=== PATIENT | female | born 1935 | race Caucasian/White ===

== ENCOUNTER 2019-08-24 03:16 | Emergency (ER) | payer OTHER ==
[2019-08-24] MEDS ORDERED: TRAMADOL HCL 50 MG TAB ONE (04:36)
--- NOTE | 2019-08-24 05:24 | EDPHYS ---
Physician Documentation [facility] Name: Dayanna Borrero Age: 84 yrs Sex: Female : 1935 Arrival Date: 08/24/2019 Time: 03:19 Bed 6 Private MD: ED Physician Everett Seymour HPI: 08/24 04:00 This 84 yrs old Female presents to ER via EMS with complaints of Fall Injury. tw4 04:00 Details of fall: The patient fell from an upright position, while standing. Onset: The tw4 symptoms/episode began/occurred today. Associated injuries: The patient sustained left hip. Severity of symptoms: At their worst the symptoms were mild, in the emergency department the symptoms are unchanged. The patient has not experienced similar symptoms in the past. Historical: - Allergies: 03:29 fluoxetine (bulk); bb 03:29 Iodine; bb 03:29 morphine; bb 03:29 quinidine; bb - Home Meds: 03:29 systane gel [Active]; duloxetine 60 mg oral cpDR 2 caps once daily [Active]; Norvasc bb 2.5 mg Oral tab 1 tab once daily [Active]; Plavix 75 mg Oral tab 1 tab once daily [Active]; aspirin 81 mg Oral chew 1 tab once daily [Active]; docusate sodium 100 mg Oral cap 1 cap 2 times per day [Active]; simvastatin 20 mg Oral tab 1 tab once daily [Active]; systane solution [Active]; Creon oral oral [Active]; Acetaminophen Oral [Active]; Tramadol Oral [Active]; Melatonin Oral [Active]; Seroquel 300 mg Oral tab 1 tab once daily [Active]; - Immunization history: Last tetanus immunization: unknown. - Social history:: Smoking status: Patient/guardian denies using tobacco. - Ebola Screening: : No symptoms or risks identified at this time. ROS: 04:00 Constitutional: Negative for fever, chills, and weight loss, Eyes: Negative for injury, tw4 pain, redness, and discharge, Cardiovascular: Negative for chest pain, palpitations, and edema, Respiratory: Negative for shortness of breath, cough, wheezing, and pleuritic chest pain, Abdomen/GI: Negative for abdominal pain, nausea, vomiting, diarrhea, and constipation, Skin: Negative for injury, rash, and discoloration, Neuro: Negative for headache, weakness, numbness, tingling, and seizure. 04:00 MS/extremity: Positive for injury or acute deformity, decreased range of motion, pain, paresthesias, puncture, Negative for abrasion, bite, contusion, puncture, rash, swelling. Exam: 04:00 Constitutional: This is a well developed, well nourished patient who is awake, alert, tw4 and in no acute distress. Head/Face: Normocephalic, atraumatic. Chest/axilla: Normal chest wall appearance and motion. Nontender with no deformity. No lesions are appreciated. Cardiovascular: Regular rate and rhythm with a normal S1 and S2. No gallops, murmurs, or rubs. Normal PMI, no JVD. No pulse deficits. Respiratory: Lungs have equal breath sounds bilaterally, clear to auscultation and percussion. No rales, rhonchi or wheezes noted. No increased work of breathing, no retractions or nasal flaring. Abdomen/GI: Soft, non-tender, with normal bowel sounds. No distension or tympany. No guarding or rebound. No evidence of tenderness throughout. Neuro: Awake and alert, GCS 15, oriented to person, place, time, and situation. Cranial nerves II-XII grossly intact. Motor strength 5/5 in all extremities. Sensory grossly intact. Cerebellar exam normal. Normal gait. 04:00 Musculoskeletal/extremity: Extremities: noted in the left hip: decreased ROM, deformity, pain. Vital Signs: 03:20 BP 147 / 110; Pulse 64; Resp 18; Temp 97.8(O); Pulse Ox 94% on R/A; Weight 58.97 kg ak1 (R); Height 5 ft. 0 in. (152.40 cm) (R); Pain 3/10; 03:54 BP 160 / 90; Pulse 57; Resp 18; Pulse Ox 95% on R/A; ak1 04:42 BP 157 / 101; Pulse 63; Resp 18; Pulse Ox 97% on R/A; ak1 05:15 BP 165 / 86; Pulse 62; Resp 16; Pulse Ox 95% on R/A; ak1 03:20 Body Mass Index 25.39 (58.97 kg, 152.40 cm) ak1 [place] Coma Score: 03:20 Eye Response: spontaneous(4). Verbal Response: oriented(5). Motor Response: obeys ak1 commands(6). Total: 15. Trauma Score (Adult): 03:20 Eye Response: spontaneous(1); Verbal Response: oriented(1); Motor Response: obeys ak1 commands(2); Systolic BP: > 89 mm Hg(4); Respiratory Rate: 10 to 29 per min(4); Markus Score: 15; Trauma Score: 12 MDM: 03:20 Patient medically screened. tw4 08/25 02:08 Differential diagnosis: abrasion, closed head injury, contusion. Data reviewed: tw4 radiologic studies, CT scan. Data interpreted: Pulse oximetry: Interpretation: normal. Counseling: I had a detailed discussion with the patient and/or guardian regarding: the historical points, exam findings, and any diagnostic results supporting the discharge/admit diagnosis. Medication response: tramadol. Response to treatment: the patient's symptoms have markedly improved after treatment, and as a result, I will discharge patient. Special discussion: I discussed with the patient/guardian in detail that at this point there is no indication for admission to the hospital. It is understood, however, that if the symptoms persist or worsen the patient needs to return immediately for re-evaluation. 08/24 03:21 Order name: CT Head C Spine tw4 08/24 03:21 Order name: CT Pelvis wo Cont tw4 Administered Medications: 08/24 04:42 Drug: traMADol 50 mg Route: PO; ak1 05:16 Follow up: Response: No adverse reaction; RASS: Alert and Calm (0); RASS: Drowsy (-1) ak1 Disposition: 08/24/19 05:23 Discharged to Home. Impression: Contusion of left hip. - Condition is Stable. - Discharge Instructions: Contusion, Hip Pain. - Prescriptions for Tramadol 50 mg Oral Tablet - take 1 tablet by ORAL route every 8 hours as needed; 12 tablet. - Medication Reconciliation Form, Thank You Letter, Antibiotic Education, Prescription Opioid Use form. - Follow up: Private Physician; When: Upon discharge from the Emergency Department; Reason: Recheck today's complaints, Continuance of care. - Problem is new. - Symptoms have improved. Signatures: Dispatcher [employer] Merissa Boyle RN RN bb Bonny Wilson RN RN ak1 vEerett Seymour MD [place] tw4 Corrections: (The following items were deleted from the chart) 07:09 05:23 08/24/2019 05:23 Discharged to Home. Impression: Contusion of left hip. Condition ak1 is Stable. Forms are Medication Reconciliation Form, Thank You Letter, Antibiotic Education, Prescription Opioid Use. Follow up: Private Physician; When: Upon discharge from the Emergency Department; Reason: Recheck today's complaints, Continuance of care. Problem is new. Symptoms have improved. tw4
--- NOTE | 2019-08-24 05:24 | ER ---
Nurse's Notes [facility] Name: Dayanna Borrero Age: 84 yrs Sex: Female : 1935 Arrival Date: 08/24/2019 Time: 03:19 Bed 6 Private MD: Diagnosis: Contusion of left hip Presentation: 08/24 03:20 Presenting complaint: EMS states: pt was found on the floor 30 mins [employer] with her walker ak1 in front of her at [facility]. pt c/o left hip pain. pt with pulses present to left foot. pt denies hitting her head, pt on Plavix. Care prior to arrival: None. Mechanism of Injury: Fall from standing position. Trauma event details: Injury occurred in the [facility], Injury occurred: [facility] Injury occurred: August 24, 2019 Injury occurred at: 02:50. 03:20 Method Of Arrival: EMS: [facility] ak1 03:20 Acuity: LORAINE 4 ak1 03:27 Transition of care: patient was not received from another setting of care. Onset of ak1 symptoms was August 24, 2019. Risk Assessment: Do you want to hurt yourself or someone else? Patient reports no desire to harm self or others. Initial Sepsis Screen: Does the patient meet any 2 criteria? No. Patient's initial sepsis screen is negative. Does the patient have a suspected source of infection? No. Patient's initial sepsis screen is negative. Trauma Activation: Alert Physician: ED Physician; Name: Dr. Seymour; Notified At: 03:10; Arrived At: 03:10 Physician: General Surgeon; Name: ; Notified At: 03:10; Arrived At: Physician: Radiology; Name: Daniel; Notified At: 03:10; Arrived At: 03:10 Physician: Respiratory; Name: ; Notified At: 03:10; Arrived At: Physician: Lab; Name: ; Notified At: 03:10; Arrived At: Historical: - Allergies: 03:29 fluoxetine (bulk); bb 03:29 Iodine; bb 03:29 morphine; bb 03:29 quinidine; bb - Home Meds: 03:29 systane gel [Active]; duloxetine 60 mg oral cpDR 2 caps once daily [Active]; Norvasc bb 2.5 mg Oral tab 1 tab once daily [Active]; Plavix 75 mg Oral tab 1 tab once daily [Active]; aspirin 81 mg Oral chew 1 tab once daily [Active]; docusate sodium 100 mg Oral cap 1 cap 2 times per day [Active]; simvastatin 20 mg Oral tab 1 tab once daily [Active]; systane solution [Active]; Creon oral oral [Active]; Acetaminophen Oral [Active]; Tramadol Oral [Active]; Melatonin Oral [Active]; Seroquel 300 mg Oral tab 1 tab once daily [Active]; - Immunization history: Last tetanus immunization: unknown. - Social history:: Smoking status: Patient/guardian denies using tobacco. - Ebola Screening: : No symptoms or risks identified at this time. Screenin:20 Abuse screen: Denies threats or abuse. Denies injuries from another. Tuberculosis ak1 screening: No symptoms or risk factors identified. 03:27 Nutritional screening: No deficits noted. Fall Risk Fall in past 12 months (25 points). ak1 Primary Survey: 03:20 NO uncontrolled hemorrhage observed. Breathing/Chest: Respiratory pattern: regular, ak1 Respiratory effort: unlabored. Circulation: Pulses: palpable left dorsalis pedis artery. Skin temperature: warm, dry. Disability Alert. Exposure/Environment: A warming method has been applied: A warm blanket has been provided to the patient. 03:52 Reassessment Breathing/Chest Respiratory pattern Regular Respiratory effort Spontaneous ak1 Unlabored Disability Alert. Secondary Survey: 03:20 HEENT: No deficits noted. Gastrointestinal: No deficits noted. : No signs and/or ak1 symptoms were reported regarding the genitourinary system. Musculoskeletal: Range of motion: intact in all extremities. Assessment: 03:20 General: Appears in no apparent distress. comfortable, Behavior is calm, cooperative, ak1 appropriate for age. Pain: Complains of pain in left hip. Neuro: Level of Consciousness is awake, alert, obeys commands, Oriented to person, place. EENT: No signs and/or symptoms were reported regarding the EENT system. Cardiovascular: No deficits noted. Respiratory: Airway is patent Respiratory effort is even, unlabored. GI: No signs and/or symptoms were reported involving the gastrointestinal system. : No signs and/or symptoms were reported regarding the genitourinary system. Derm: No signs and/or symptoms reported regarding the dermatologic system. Musculoskeletal: Range of motion: intact in all extremities, pt ambulates at [facility] with a walker. 03:53 Reassessment: pt to CT. ak1 04:23 Reassessment: pt returned from CT. ak1 04:43 Reassessment: Patient appears in no apparent distress at this time. Patient and/or ak1 family updated on plan of care and expected duration. Pain level reassessed. Patient is alert, oriented x 3, equal unlabored respirations, skin warm/dry/pink. pt c/o pain, verbal orders from Dr. Seymour. family at bedside. pt and family informed of wait time for CT results. 05:30 Reassessment: report called to David at [facility] who will arrange transport for ak pt. Vital Signs: 03:20 BP 147 / 110; Pulse 64; Resp 18; Temp 97.8(O); Pulse Ox 94% on R/A; Weight 58.97 kg ak1 (R); Height 5 ft. 0 in. (152.40 cm) (R); Pain 3/10; 03:54 BP 160 / 90; Pulse 57; Resp 18; Pulse Ox 95% on R/A; ak1 04:42 BP 157 / 101; Pulse 63; Resp 18; Pulse Ox 97% on R/A; ak1 05:15 BP 165 / 86; Pulse 62; Resp 16; Pulse Ox 95% on R/A; ak1 03:20 Body Mass Index 25.39 (58.97 kg, 152.40 cm) ak1 [facility] Coma Score: 03:20 Eye Response: spontaneous(4). Verbal Response: oriented(5). Motor Response: obeys ak1 commands(6). Total: 15. Trauma Score (Adult): 03:20 Eye Response: spontaneous(1); Verbal Response: oriented(1); Motor Response: obeys ak1 commands(2); Systolic BP: > 89 mm Hg(4); Respiratory Rate: 10 to 29 per min(4); Markus Score: 15; Trauma Score: 12 ED Course: 03:19 Patient arrived in ED. bb 03:20 Everett Seymour MD is Attending Physician. tw4 03:20 Patient has correct armband on for positive identification. Placed in gown. Bed in low ak1 position. Call light in reach. Side rails up X2. 03:20 Patient maintains SpO2 saturation greater than 95% on room air. ak1 03:23 Triage completed. ak1 03:27 Pulse ox on. NIBP on. ak1 03:28 Arm band placed on Patient placed in an exam room, on a stretcher, on pulse oximetry, ak1 Patient notified of wait time. 03:28 Thermoregulation: warm blanket given to patient. ak1 03:52 Bonny Wilson, RN is Primary Nurse. ak1 04:38 CT Pelvis wo Cont In Process Unspecified. EDMS 04:39 CT Head C Spine In Process Unspecified. EDMS 05:29 [facility] called Stephanie CALLAHAN said [facility] will pick the mw2 patient up in an hour to and hour and a half. 05:33 Patient did not have IV access during this emergency room visit. ak1 05:33 No provider procedures requiring assistance completed. ak1 Administered Medications: 04:42 Drug: traMADol 50 mg Route: PO; ak1 05:16 Follow up: Response: No adverse reaction; RASS: Alert and Calm (0); RASS: Drowsy (-1) ak1 Intake: 03:28 PO: 0ml; Total: 0ml. ak1 Outcome: 03:28 Patient's length of stay was not longer than 2 hours. ak1 05:23 Discharge ordered by . tw4 07:08 Discharged to prison. jb4 07:08 Condition: stable 07:08 Discharge instructions given to patient, prison, Instructed on discharge instructions, follow up and referral plans. medication usage, Demonstrated understanding of instructions, follow-up care, medications, Prescriptions given X 1. 07:09 Patient left the ED. ak1 Signatures: Dispatcher [employer] EDMS Merissa Ray RN RN Bonny Wilson, RN RN ak1 Lambert Mcleod RN RN jb4 Wadley, Terrence, MD MD tw4 [place], MyKena 2
[2019-08-24 07:16] VITALS: TEMP 97.8
[2019-08-24 07:20] VITALS: BP 165/86; O2SAT 95
--- NOTE | 2019-08-24 10:55 | RAD REPORT ---
EXAM DESCRIPTION: Pelvis Wo Cont CLINICAL HISTORY: Trauma. COMPARISON: None. TECHNIQUE: Axial unenhanced CT imaging of the pelvis. Reformatted coronal and sagittal images review ed. Examination was performed according to our departmental dose-optimization program, which includes aut omated exposure control, adjustment of the mA and/or kV according to patient size and/or use of itera tive reconstruction technique. FINDINGS: RETROPERITONEAL VESSELS/NODES: Significant distal abdominal aorta and mild proximal right common iliac artery atherosclerosis. No retroperitoneal or pelvic hemorrhage or adenopathy seen. BOWEL: Included small bowel loops are normal in caliber. Appendix is not visualized. A few scattered colonic diverticula are present without reticulitis. MESENTERY/PERITONEUM: No edema or free air. No adenopathy. BLADDER: Complete evaluation pelvis is limited due to beam hardening artifact from the left hip arth roplasty. The bladder is grossly unremarkable. GENITAL ORGANS: The uterus is surgically absent. PERITONEUM: No pelvic free fluid/hemorrhage evident. BONES AND SOFT TISSUES: Left hip arthroplasty appears grossly intact. There is a transitional lumbos acral segment. There is transpedicular fusion hardware noted at L5. There is significant vacuum disc change at L5/L6 with extensive adjacent endplate sclerosis. Intact sacrum. There is an old superior e ndplate fracture of the transitional lumbosacral segment. There is no acute fracture within the remai luis bony pelvis. Hypertrophic bony changes are noted along the sacroiliac joints and symphysis pubis . There is deformity of the posterior right and left iliac bones which may be sequela of remote traum a. There is no fracture within the proximal right femur. IMPRESSION: 1. No acute fracture within the bony pelvis or proximal femurs. Left hip arthroplasty ap pears intact. Deformity of the posterior iliac bones and sacrum may be sequela of remote trauma. 2. Remote depression deformity along the superior endplate of the transitional lumbosacral segment. Electronically signed by: Nica Jang DO 08/24/2019 4:48 AM CDT Due to temporary technical issues with the PACS/Fluency reporting system, reports are being signed by the in house radiologist as a courtesy to ensure prompt reporting. The interpreting radiologist is jarret cardly responsible for the content of the report.
--- NOTE | 2019-08-24 10:57 | RAD REPORT ---
EXAM DESCRIPTION: CT Head and Cervical Spine Without Intravenous Contrast CLINICAL HISTORY: The patient is 84 years old and is Female; fall TECHNIQUE: Axial computed tomography images of the head/brain and cervical spine without intravenous contrast. Sagittal and coronal reformatted images were created and reviewed. This CT exam was pe rformed using one or more of the following dose reduction techniques: automated exposure control, a djustment of the mA and/or kV according to patient size, and/or use of iterative reconstruction techn ique. COMPARISON: No relevant prior studies available. FINDINGS: BRAIN: There is diffuse cerebral atrophy present, consistent with this patient's age. There is patchy hypoattenuation of the deep white matter which is non-specific, but most likely owing to chronic small vessel ischemic change in a patient of this age group. Encephalomalacia within th e left occipital lobe is present. No intracranial hemorrhage, mass effect, or midline shift is seen. There are no extra-axial fluid collections. VENTRICLES: Unremarkable. No ventriculomegaly. SKULL: No acute fracture. SINUSES: Unremarkable as visualized. No acute sinusitis. MASTOID AIR CELLS: Unremarkable as visualized. No mastoid effusion. VERTEBRAE: The vertebral body heights and alignment are maintained. No acute fracture. DISCS/SPINAL CANAL/NEURAL FORAMINA: There is multi-level intervertebral disc height loss. There are disc-osteophyte complexes at several levels, with associated mild spinal canal narrowing. There i s also facet hypertrophy and uncovertebral joint osteophytosis, with associated multilevel neural for aminal narrowing. SOFT TISSUES: The soft tissues are normal. LUNG APICES: The lung apices are clear. IMPRESSION: 1. No acute intracranial findings. 2. 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 Electronically signed by: Billie Velasquez MD 08/24/2019 4:47 AM CDT Due to temporary technical issues with the PACS/Fluency reporting system, reports are being signed by the in house radiologist as a courtesy to ensure prompt reporting. The interpreting radiologist is f ully responsible for the content of the report.
== END 2019-08-24 07:09 | disposition home or self-care (01) ==
LOC: ER 03:16
DX: S70.02XA Contusion of left hip, initial encounter (principal); W19.XXXA Unspecified fall, initial encounter; Y93.89 Activity, other specified; Y92.9 Unspecified place or not applicable; Z79.01 Long term (current) use of anticoagulants; Z79.82 Long term (current) use of aspirin; Z88.5 Allergy status to narcotic agent; Z88.8 Allergy status to other drugs, medicaments and biological substances; Z91.048 Other nonmedicinal substance allergy status
CPT/HCPCS: 70450; 72125; 72192; 99284

== ENCOUNTER 2019-10-02 19:10 | Inpatient (IN) | payer OTHER ==
[~2019-10-02 19:10] MED LIST: DIAZEPAM 10 MG/2 ML INJ SYRINGE ONE; NA CHLORIDE 0.9% 250 ML ONE
--- OUTSIDE RECORDS SUMMARY | 2019-10-02 19:12 | XMS REPORT ---
:1935 Author Organization [facility] Address [address] [place] [address] Dr. Abbott [address] [place] [id number] Care Team Providers Name Role Phone Unavailable Unavailable Unavailable Problems This patient has no known problems. Allergies, Adverse Reactions, Alerts This patient has no known allergies or adverse reactions. Medications This patient has no known medications.
[2019-10-02] MEDS ORDERED: CEFTRIAXONE/SWI 1gm 1 GM/10 ML SYR ONE (19:28)
[2019-10-02 19:31] LABS: Absolute Lymphocytes (CBC) 2.2 K/uL (0.7-4.9); Basophils % 0.4 % (0-1.3); Hematocrit 30.4 % (36.0-45.0); Lymphocytes % 29.9 % (15.3-44.8); MPV 7.9 fL (7.6-11.3); RBC Red Blood Cell Count 3.37 M/uL (3.86-4.86)
--- NOTE | 2019-10-02 19:52 | RAD REPORT ---
EXAM DESCRIPTION: CT - Head Brain Wo Cont - 10/02/2019 7:34 pm CLINICAL HISTORY: Transient alteration of awareness COMPARISON: CT study August 24 TECHNIQUE: Axial 5 mm thick images of the head were obtained without IV contrast. All CT scans are performed using dose optimization technique as appropriate and may include automated exposure control or mA/KV adjustment according to patient size. FINDINGS: No intracranial hemorrhage, mass, edema or shift of mid-line structures. No acute cortical based infarction. No cortical edema or sulcal effacement. No abnormal extra-axial fluid collections. Atrophy and chronic ischemic changes are present. Ventricles are in proportion to the amount of volu me loss. 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 Mastoid air cells and visualized portions of the paranasal sinuses are clear. No acute bony findings. IMPRESSION: No hemorrhage, mass or acute intracranial finding. 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
[2019-10-02 20:16] LABS: Protime INR 0.94
[2019-10-02 20:30] LABS: ALT/SGPT 18 U/L (12-78); AST/SGOT 16 U/L (15-37); Albumin 3.4 g/dL (3.4-5.0); Alkaline Phosphatase 64 U/L (45-117); BUN Blood Urea Nitrogen 24 mg/dL (7-18); Bicarbonate 30 mmol/L (21-32); Bilirubin Direct 0.1 mg/dL (0-0.2); Bilirubin Total 0.3 mg/dL (0.2-1.0); CKMB Creatine Kinase MB 1.3 ng/mL (0.3-3.6); Creatine Phosphokinase 89 U/L (26-192); Glucose Level 109 mg/dL (74-106); Lipase 182 U/L (73-393); Protein, Total 6.4 g/dL (6.4-8.2); Sodium Level 145 mmol/L (136-145); Troponin (Emerg Dept Use Only) < 0.02 ng/mL (0.0-0.045)
[2019-10-02 20:47] LABS: Urine Bacteria >50 /HPF (<20)
[2019-10-02 20:48] LABS: Urine Culture Reflex Order REFLEXED; Urine RBC <5 /HPF (NONE SEEN)
--- NOTE | 2019-10-02 21:13 | RAD REPORT ---
EXAM DESCRIPTION: RAD - Chest Single View - 10/02/2019 7:58 pm CLINICAL HISTORY: Shortness of breath, transient alteration of awareness COMPARISON: November 2007 TECHNIQUE: AP portable chest image was obtained 1941 hours . FINDINGS: Low lung volumes are noted. Patient is significantly rotated. No peripheral mass or consol idation. No significant pulmonary edema. Heart size appears to be within normal limits. There is left hemidiaphragm elevation with prominent stomach and colon further elevating the left hemidiaphragm. M ediastinum is widened by significant rotation. Aorta is distorted in this setting as well. No measura ble pleural effusion and no pneumothorax. No acute bony abnormality seen. No acute aortic findings eagle spected. IMPRESSION: Significantly limited examination without acute cardiopulmonary finding.
--- NOTE | 2019-10-02 21:59 | ER ---
Nurse's Notes [facility] Name: Dayanna Borrero Age: 84 yrs Sex: Female : 1935 Arrival Date: 10/02/2019 Time: 19:02 Bed 5 Private MD: Diagnosis: Altered mental status, unspecified;Urinary tract infection, site not specified Presentation: 10/02 19:03 Presenting complaint: EMS states: "the [facility] staff reported that the pt was jd3 biting, spitting, and yelling at the staff and that PD was called. PD called us. we gave 150 Ketamine at which point she became unresponsive. she was initially A\\T\\O X 2, by but became confused and stopped responding.". Transition of care: patient was received from another setting of care (long-term care [facility]. Onset of symptoms was October 02, 2019. Risk Assessment: Do you want to hurt yourself or someone else? Patient reports no desire to harm self or others. Initial Sepsis Screen: Does the patient meet any 2 criteria? No. Patient's initial sepsis screen is negative. Does the patient have a suspected source of infection? No. Patient's initial sepsis screen is negative. Care prior to arrival: None. 19:03 Method Of Arrival: EMS: [facility] jd3 19:03 Acuity: LORAINE 1 jd3 Historical: - Allergies: 19:07 fluoxetine (bulk); jd3 19:07 Iodine; jd3 19:07 Morphine; jd3 19:07 quinidine; jd3 - Home Meds: 19:38 Acetaminophen Oral [Active]; aspirin 81 mg Oral chew 1 tab once daily [Active]; Creon jd3 Oral [Active]; docusate sodium 100 mg Oral cap 1 cap 2 times per day [Active]; duloxetine 60 mg Oral cpDR 2 caps once daily [Active]; Melatonin Oral [Active]; Norvasc 2.5 mg Oral tab 1 tab once daily [Active]; Plavix 75 mg Oral tab 1 tab once daily [Active]; Seroquel 300 mg Oral tab 1 tab once daily [Active]; simvastatin 20 mg Oral tab 1 tab once daily [Active]; systane gel [Active]; systane solution [Active]; Tramadol Oral [Active]; - PMHx: 19:38 Bipolar disorder; Dementia; Pancreatitis; High Cholesterol; heart desease; jd3 - Immunization history:: Adult Immunizations unknown. - Social history:: Smoking status: unknown. - Ebola Screening: : Patient negative for fever greater than or equal to 101.5 degrees Fahrenheit, and additional compatible Ebola Virus Disease symptoms. Screenin:16 Abuse screen: Denies threats or abuse. Denies injuries from another. Nutritional lp1 screening: No deficits noted. Tuberculosis screening: No symptoms or risk factors identified. Fall Risk Total Nuñez Fall Scale indicates High Risk Score (45 or more points). Fall prevention measures have been instituted. Side Rails Up X 2 Placed Close to Nursing Station Frequent Obs/Assessments Occuring Family Present and informed to notify staff if the need to leave the bedside As available patient and family educated on Fall Prevention Program and Strategies. Assessment: 19:05 Reassessment: VO to administer Valium 5 mg IVP at this time. Upon arrival to bedside, aa5 MD states to only administer 2.5 mg of Valium IVP. 2.5 mg of Valium wasted and witnessed by Merissa Ray RN. . 19:14 Reassessment: Dr. Chanel at bedside discussing care with patient's daughter, Cleo, lp1 RN, POJaxson. 19:15 General: Appears slender, Behavior is drowsy. Pain: Unable to use pain scale. Patient lp1 is disoriented. Does not appear to understand pain scale. Neuro: Level of Consciousness is awake, Oriented to none. Cardiovascular: Capillary refill < 3 seconds in bilateral fingers toes Patient's skin is warm and dry. Respiratory: Airway is patent Trachea midline Respiratory effort is even, Respiratory pattern is symmetrical, Breath sounds are clear bilaterally. GI: Abdomen is flat. : No signs and/or symptoms were reported regarding the genitourinary system. EENT: No deficits noted. Derm: Skin is fragile, is thin, Skin is dry, Skin is normal. Musculoskeletal: No deficits noted. 20:00 Reassessment: Patient appears in no apparent distress at this time. Patient returned lp1 from CT, appears more alert, answering questions appropriately, slow to respond; Family at bedside;. Neuro: Oriented to person. 22:00 General: Appears in no apparent distress. Behavior is calm, cooperative. Neuro: Level lp1 of Consciousness is awake, obeys commands, Oriented to person. 23:00 Reassessment: Patient appears in no apparent distress at this time. No changes from lp1 previously documented assessment. Patient awake, confused, talking with family at bedside. 10/03 00:00 Reassessment: Family at bedside, patient's daughter taking home patient's belongings. lp1 01:00 Reassessment: Patient appears in no apparent distress at this time. Patient resting, lp1 eyes closed, respirations unlabored. Vital Signs: 10/02 19:07 BP 164 / 121; Pulse 103; Resp 20 S; Temp 97.0(A); Pulse Ox 99% on Non-rebreather mask; jd3 Weight 54.43 kg (R); Height 5 ft. 4 in. (162.56 cm) (R); 19:20 BP 157 / 96; Pulse 93; Resp 19; Pulse Ox 100% on 15% Non-rebreather mask; lp1 20:15 BP 165 / 95; Pulse 86; Resp 20; Pulse Ox 97% on R/A; lp1 21:00 BP 150 / 90; Pulse 84; Resp 20; Pulse Ox 97% on R/A; lp1 21:30 BP 154 / 88; Pulse 85; Resp 20; Pulse Ox 97% on R/A; lp1 22:30 BP 150 / 89; Pulse 92; Resp 19; Pulse Ox 97% on R/A; lp1 12 00:00 BP 167 / 96; Pulse 86; Resp 16; Pulse Ox 97% on R/A; lp1 01:00 BP 171 / 97; Pulse 87; Resp 16; Pulse Ox 95% on R/A; lp1 10/02 19:07 Body Mass Index 20.60 (54.43 kg, 162.56 cm) [facility] ED Course: 10/02 19:00 Inserted saline lock: 20 gauge in left antecubital area, using aseptic technique. By lp1 LONDON Israel. 19:00 Missed attempt(s): 22 gauge in right forearm. lp1 19:02 Patient arrived in ED. iw 19:06 Triage completed. jd3 19:08 Arm band placed on. jd3 19:09 Obed Chanel MD is Attending Physician. kdr 19:14 Mai Sutton RN is Primary Nurse. lp1 19:16 Patient has correct armband on for positive identification. Placed in gown. Bed in low lp1 position. Side rails up X2. residential monitor on. Pulse ox on. NIBP on. 19:24 Attending Physician role handed off by Obed Chanel MD [facility] 19:24 Bob Villalobos MD is Attending Physician. kim 19:34 CT completed. Patient tolerated procedure well. Patient moved to CT. Patient moved back nj from CT. 19:35 CT Head Brain wo Cont In Process Unspecified. EDMS 20:00 Straight cath inserted, using sterile technique, 16 Fr. Specimen obtained. Returned lp1 cloudy urine. 20:02 Chest Single View XRAY In Process Unspecified. EDMS 21:57 Raz Perez MD is Hospitalizing Provider. [facility] 22:22 No provider procedures requiring assistance completed. Patient admitted, IV remains in lp1 place. Administered Medications: 19:00 Drug: NS 0.9% 250 ml Route: IV; Rate: bolus; Site: left antecubital; lp1 19:30 Follow up: IV Status: Completed infusion; IV Intake: 250ml lp1 19:04 Drug: Valium 2.5 mg Route: IVP; Site: left antecubital; aa5 20:15 Follow up: Response: Marked relief of symptoms lp1 19:04 Drug: Zofran 4 mg Route: IVP; Site: left antecubital; aa5 20:15 Follow up: Response: No adverse reaction lp1 20:13 Drug: Rocephin 1 grams Route: IV; Rate: calculated rate; Site: left antecubital; lp1 21:00 Follow up: IV Status: Completed infusion; IV Intake: 10ml lp1 22:20 Drug: NS 0.9% 1000 ml Route: IV; Rate: 1 bolus; Site: left antecubital; lp1 23:45 Follow up: IV Status: Completed infusion; IV Intake: 1000ml lp1 Intake: 19:30 IV: 250ml; Total: 250ml. lp1 21:00 IV: 10ml; Total: 260ml. lp1 23:45 IV: 1000ml; Total: 1260ml. lp1 Outcome: 21:59 Decision to Hospitalize by Provider. kim 22:21 Condition: stable lp1 22:21 Instructed on the need for admit. 10/03 01:45 Admitted to Med/surg accompanied by nurse, via stretcher, room 232, with chart, Report lp1 called to LONDON Lara 01:58 Patient left the ED. lp1 Signatures: Dispatcher [employer] EDBob Vázquez MD MD cha Rittger, Kevin, MD MD kdr Williams, Irene, RN Stefany Velasco RN RN aa5 Mai Sutton RN RN lp1 Skyler Cota Jonathon, RN RN jd3 Corrections: (The following items were deleted from the chart) 10/02 19:32 19:03 Transition of care: patient was not received from another setting of care. jd3 jd3
--- NOTE | 2019-10-02 22:00 | EDPHYS ---
Physician Documentation [facility] Name: Dayanna Borrero Age: 84 yrs Sex: Female : 1935 Arrival Date: 10/02/2019 Time: 19:02 Bed 5 Private MD: ED Physician Bob Villalobos HPI: 10/02 19:09 This 84 yrs old Female presents to ER via EMS with complaints of combative at [facility]. 19:09 The patient presents with agitation, confusion. Onset: The symptoms/episode kdr began/occurred suddenly, just prior to arrival. Possible causes: CVA or TIA, sepsis. 21:53 Associated signs and symptoms: Pertinent positives: combativeness, confusion. Current kim symptoms: In the emergency department the patient's symptoms have improved, mildly. Patient's baseline: Neuro: alert but confused. The patient has experienced similar episodes in the past, a few times. Historical: - Allergies: 19:07 fluoxetine (bulk); jd3 19:07 Iodine; jd3 19:07 Morphine; jd3 19:07 quinidine; jd3 - Home Meds: 19:38 Acetaminophen Oral [Active]; aspirin 81 mg Oral chew 1 tab once daily [Active]; Creon jd3 Oral [Active]; docusate sodium 100 mg Oral cap 1 cap 2 times per day [Active]; duloxetine 60 mg Oral cpDR 2 caps once daily [Active]; Melatonin Oral [Active]; Norvasc 2.5 mg Oral tab 1 tab once daily [Active]; Plavix 75 mg Oral tab 1 tab once daily [Active]; Seroquel 300 mg Oral tab 1 tab once daily [Active]; simvastatin 20 mg Oral tab 1 tab once daily [Active]; systane gel [Active]; systane solution [Active]; Tramadol Oral [Active]; - PMHx: 19:38 Bipolar disorder; Dementia; Pancreatitis; High Cholesterol; heart desease; jd3 - Immunization history:: Adult Immunizations unknown. - Social history:: Smoking status: unknown. - Ebola Screening: : Patient negative for fever greater than or equal to 101.5 degrees Fahrenheit, and additional compatible Ebola Virus Disease symptoms. ROS: 21:54 Constitutional: Negative for fever, chills, and weight loss, Eyes: Negative for injury, kim pain, redness, and discharge, ENT: Negative for injury, pain, and discharge, Neck: Negative for injury, pain, and swelling, Cardiovascular: Negative for chest pain, palpitations, and edema, Respiratory: Negative for shortness of breath, cough, wheezing, and pleuritic chest pain, Abdomen/GI: Negative for abdominal pain, nausea, vomiting, diarrhea, and constipation, Back: Negative for injury and pain, : Negative for injury, bleeding, discharge, and swelling, MS/Extremity: Negative for injury and deformity, Skin: Negative for injury, rash, and discoloration, Psych: Negative for depression, anxiety, suicide ideation, homicidal ideation, and hallucinations, Allergy/Immunology: Negative for hives, rash, and allergies, Endocrine: Negative for neck swelling, polydipsia, polyuria, polyphagia, and marked weight changes, Hematologic/Lymphatic: Negative for swollen nodes, abnormal bleeding, and unusual bruising. 21:54 Neuro: Positive for altered mental status, weakness. Exam: 21:54 Constitutional: This is a well developed, well nourished patient who is awake, alert, kim and in no acute distress. Head/Face: Normocephalic, atraumatic. Eyes: Pupils equal round and reactive to light, extra-ocular motions intact. Lids and lashes normal. Conjunctiva and sclera are non-icteric and not injected. Cornea within normal limits. Periorbital areas with no swelling, redness, or edema. ENT: Nares patent. No nasal discharge, no septal abnormalities noted. Tympanic membranes are normal and external auditory canals are clear. Oropharynx with no redness, swelling, or masses, exudates, or evidence of obstruction, uvula midline. Mucous membranes moist. Neck: Trachea midline, no thyromegaly or masses palpated, and no cervical lymphadenopathy. Supple, full range of motion without nuchal rigidity, or vertebral point tenderness. No Meningismus. Chest/axilla: Normal chest wall appearance and motion. Nontender with no deformity. No lesions are appreciated. Cardiovascular: Regular rate and rhythm with a normal S1 and S2. No gallops, murmurs, or rubs. Normal PMI, no JVD. No pulse deficits. Respiratory: Lungs have equal breath sounds bilaterally, clear to auscultation and percussion. No rales, rhonchi or wheezes noted. No increased work of breathing, no retractions or nasal flaring. Abdomen/GI: Soft, non-tender, with normal bowel sounds. No distension or tympany. No guarding or rebound. No evidence of tenderness throughout. Back: No spinal tenderness. No costovertebral tenderness. Full range of motion. Female : Normal external genitalia. Skin: Warm, dry with normal turgor. Normal color with no rashes, no lesions, and no evidence of cellulitis. MS/ Extremity: Pulses equal, no cyanosis. Neurovascular intact. Full, normal range of motion. Psych: Awake, alert, with orientation to person, place and time. Behavior, mood, and affect are within normal limits. 21:54 Neuro: Orientation: to person, Not oriented to place, time, situation, Mentation: confused, Memory: unable to test, Cranial nerves: is grossly normal based on the patient's age, no acute changes, Cerebellar function: is grossly normal based on the patient's age, no acute changes, Motor: strength is normal, Sensation: no obvious gross deficits, appropriate no acute changes, Gait: not tested. Deep tendon reflexes are 1 (trace) + in the bilateral brachioradialis, bicep, tricep and patellar and Achilles tendons, Babinski testing is normal, seizure activity, is not displayed by the patient. Vital Signs: 19:07 BP 164 / 121; Pulse 103; Resp 20 S; Temp 97.0(A); Pulse Ox 99% on Non-rebreather mask; jd3 Weight 54.43 kg (R); Height 5 ft. 4 in. (162.56 cm) (R); 19:20 BP 157 / 96; Pulse 93; Resp 19; Pulse Ox 100% on 15% Non-rebreather mask; lp1 20:15 BP 165 / 95; Pulse 86; Resp 20; Pulse Ox 97% on R/A; lp1 21:00 BP 150 / 90; Pulse 84; Resp 20; Pulse Ox 97% on R/A; lp1 21:30 BP 154 / 88; Pulse 85; Resp 20; Pulse Ox 97% on R/A; lp1 22:30 BP 150 / 89; Pulse 92; Resp 19; Pulse Ox 97% on R/A; lp1 1207 00:00 BP 167 / 96; Pulse 86; Resp 16; Pulse Ox 97% on R/A; lp1 01:00 BP 171 / 97; Pulse 87; Resp 16; Pulse Ox 95% on R/A; lp1 10/02 19:07 Body Mass Index 20.60 (54.43 kg, 162.56 cm) jd3 MDM: 10/02 19:24 Patient medically screened. [facility] 22:01 Data reviewed: vital signs, nurses notes, lab test result(s), EKG, radiologic studies, [facility] CT scan, plain films. 10/02 19:16 Order name: CBC with Diff; Complete Time: 21:47 kdr 10/02 19:16 Order name: Chem 7; Complete Time: 21:47 kdr 10/02 19:16 Order name: Basic Metabolic Panel kdr 10/02 19:16 Order name: Blood Culture Adult (2) kdr 10/02 19:16 Order name: CBC with Diff kdr 10/02 19:16 Order name: Ckmb; Complete Time: 21:47 kdr 10/02 19:16 Order name: CPK; Complete Time: 21:47 kdr 10/02 19:16 Order name: Lactate; Complete Time: 21:47 kdr 10/02 19:16 Order name: LFT's; Complete Time: 21:47 kdr 10/02 19:16 Order name: Lipase; Complete Time: 21:47 kdr 10/02 19:16 Order name: Procalcitonin; Complete Time: 21:47 kdr 10/02 19:16 Order name: Protime (+inr); Complete Time: 21:47 kdr 10/02 19:16 Order name: Ptt, Activated; Complete Time: 21:47 kdr 10/02 19:16 Order name: Troponin (emerg Dept Use Only); Complete Time: 21:47 kdr 10/02 19:16 Order name: Urine Microscopic Only; Complete Time: 21:47 kdr 10/02 19:16 Order name: Chest Single View XRAY; Complete Time: 21:47 kdr 10/02 19:16 Order name: CT Head Brain wo Cont; Complete Time: 21:47 kdr 10/02 20:02 Order name: Glucose, Ancillary Testing; Complete Time: 21:47 EDMS 10/02 20:51 Order name: Urine Culture EDMS 10/02 22:51 Order name: CBC with Automated Diff EDMS 10/02 22:51 Order name: CBC with Automated Diff EDMS 10/02 22:51 Order name: Comprehensive Metabolic Panel EDMS 10/02 22:51 Order name: Comprehensive Metabolic Panel EDNC 10/02 22:51 Order name: Lactate EDNC 10/02 22:51 Order name: Lactate EDNC 10/02 22:51 Order name: Magnesium EDNC 10/02 22:51 Order name: Magnesium EDNC 10/02 22:51 Order name: Phosphorus EDNC 10/02 22:51 Order name: Phosphorus EDNC 10/02 22:52 Order name: Urinalysis EDNC 10/02 19:16 Order name: Accucheck; Complete Time: 20:15 kdr 10/02 19:16 Order name: Cardiac monitoring; Complete Time: 19:17 kdr 10/02 19:16 Order name: EKG - Nurse/Tech; Complete Time: 20:13 kdr 10/02 19:16 Order name: IV Saline Lock - Large Bore; Complete Time: 19:17 kdr 10/02 19:16 Order name: Labs collected and sent; Complete Time: 19:17 kdr 10/02 19:16 Order name: O2 Per Protocol; Complete Time: 19:17 kdr 10/02 19:16 Order name: O2 Sat Monitoring; Complete Time: 19:17 kdr 10/02 19:16 Order name: Urine Dipstick-Ancillary (obtain specimen); Complete Time: 20:13 kdr 10/02 22:51 Order name: Heart Healthy EDNC Administered Medications: 19:00 Drug: NS 0.9% 250 ml Route: IV; Rate: bolus; Site: left antecubital; lp1 19:30 Follow up: IV Status: Completed infusion; IV Intake: 250ml lp1 19:04 Drug: Valium 2.5 mg Route: IVP; Site: left antecubital; aa5 20:15 Follow up: Response: Marked relief of symptoms lp1 19:04 Drug: Zofran 4 mg Route: IVP; Site: left antecubital; aa5 20:15 Follow up: Response: No adverse reaction lp1 20:13 Drug: Rocephin 1 grams Route: IV; Rate: calculated rate; Site: left antecubital; lp1 21:00 Follow up: IV Status: Completed infusion; IV Intake: 10ml lp1 22:20 Drug: NS 0.9% 1000 ml Route: IV; Rate: 1 bolus; Site: left antecubital; lp1 23:45 Follow up: IV Status: Completed infusion; IV Intake: 1000ml lp1 Disposition: 10/02/19 21:59 Hospitalization ordered by Raz Perez for Inpatient Admission. Preliminary diagnosis are Altered mental status, unspecified, Urinary tract infection, site not specified. - Bed requested for Telemetry/MedSurg (Inpatient). - Status is Inpatient Admission. lp1 - Condition is Fair. - Problem is new. - Symptoms have improved. UTI on Admission? Yes Signatures: Dispatcher [employer] EDMS Bob Villalobos MD MD cha Rittger, Kevin, MD MD [facility] Merissa Ray RN RN bb Stefany Holt, RN RN aa5 Mai Sutton RN RN lp1 Mj Ford RN RN jd3 Corrections: (The following items were deleted from the chart) 10/03 00:38 10/02 21:59 Hospitalization Ordered by Raz Perez MD for Inpatient Admission. bb Preliminary diagnosis is Altered mental status, unspecified; Urinary tract infection, site not specified. Bed requested for Telemetry/MedSurg (Inpatient). Status is Inpatient Admission. Condition is Fair. Problem is new. Symptoms have improved. UTI on Admission? Yes. [facility] 10/03 01:58 00:38 10/02/2019 21:59 Hospitalization Ordered by Raz Perez MD for Inpatient lp1 Admission. Preliminary diagnosis is Altered mental status, unspecified; Urinary tract infection, site not specified. Bed requested for Telemetry/MedSurg (Inpatient). Status is Inpatient Admission. Condition is Fair. Problem is new. Symptoms have improved. UTI on Admission? Yes. bb
[2019-10-02] MEDS ORDERED: NA CHLORIDE 0.9% 1,000 ML ONE (22:20)
[2019-10-02] MEDS ORDERED: ONDANSETRON 4 MG/2 ML VIAL IV PRN (22:47)
[2019-10-02] MEDS ORDERED: ALPRAZOLAM 0.25 MG TABLET PO PRN (22:47)
[2019-10-03 02:35] VITALS: BMI 21.0
[2019-10-03] MEDS: NA CHLORIDE 0.9% 1,000 ML IV SCH ×2 (02:41→12:42)
[2019-10-03 05:00] LABS: Absolute Lymphocytes (CBC) 1.4 K/uL (0.7-4.9); Basophils % 0.4 % (0-1.3); Hematocrit 25.7 % (36.0-45.0); Lymphocytes % 21.1 % (15.3-44.8); MPV 7.2 fL (7.6-11.3); RBC Red Blood Cell Count 2.83 M/uL (3.86-4.86)
[2019-10-03 05:26] LABS: Albumin 3.1 g/dL (3.4-5.0); Bilirubin Total 0.4 mg/dL (0.2-1.0); Phosphorus 2.8 mg/dL (2.5-4.9); Potassium 3.9 mmol/L (3.5-5.1); Protein, Total 5.7 g/dL (6.4-8.2)
--- NOTE | 2019-10-03 08:55 | P.HP ---
Certification for Inpatient Patient admitted to: Inpatient With expected LOS: >2 Midnights Patient will require the following post-hospital care: None Practitioner: I am a practitioner with admitting privileges, knowledge of patient current condition, hospital course, and medical plan of care. Services: Services provided to patient in accordance with Admission requirements found in Title 42 Section 412.3 of the Code of Federal Regulations Patient History Date of Service: 10/02/19 Reason for admission: Urinary tract infection with toxic encephalopathy History of Present Illness: Patient is an 84-year-old female who came to the hospital with toxic encephalopathy. Patient has a history of Alzheimer's dementia, and she lives with her daughter and son-in-law. She was in her normal state of health until 24 hours ago when she started behaving strangely. She is forgetful but she was not making a lot of sense and the family decided to bring her into the ER for further evaluation. In the emergency room, patient was found to have a urinary tract infection. Patient was started on IV antibiotic therapy. Patient was also given IV hydration. Patient will be admitted to the hospital for further treatment and evaluation. Allergies fluoxetine Adverse Reaction (Verified 10/03/19 01:37) Unknown iodine Adverse Reaction (Verified 10/03/19 01:37) Unknown morphine Adverse Reaction (Verified 10/03/19 01:37) Unknown quinidine Adverse Reaction (Verified 10/03/19 01:37) Unknown zolpidem [From Ambien] Adverse Reaction (Verified 10/03/19 01:37) Unknown Home Medications: Acetaminophen [Tylenol] 650 mg PO Q6H PRN 10/03/19 Amlodipine [Norvasc] 2.5 mg PO BEDTIME 10/03/19 Aripiprazole [Abilify] 15 mg PO DAILY 10/03/19 Aspirin [Aspir-Low] 81 mg PO DAILY 10/03/19 Carboxymethylcellulos/Glycerin [Lubricant 0.5-0.9% Eye Drops] 1 drop OP BID 05/15 Clopidogrel Bisulfate [Plavix] 75 mg PO DAILY 10/03/19 Docusate Sodium 100 mg PO BID 10/03/19 Duloxetine HCl 120 mg PO DAILY 10/03/19 Enema, Fleet Adult [Fleet Enema Adult] 118 ml RC Q24H PRN 10/03/19 Lipase/Protease/Amylase [Manoj Cali 12,000 Units Capsule] 1 each PO TID 10/03/19 Melatonin 6 mg PO BEDTIME 10/03/19 Simvastatin 20 mg PO DAILY 10/03/19 Tramadol HCl [Ultram] 50 mg PO BEDTIME 10/03/19 Tramadol HCl [Ultram] 50 mg PO Q6H PRN 10/03/19 - Past Medical/Surgical History -: Bipolar Disorder -: Dementia -: Pancreatitis -: High Cholesterol -: Heart Disease Past Surgical History: Unable to obtain - Family History Father Family History: Reviewed- Non-Contributory - Social History Smoking Status: Unknown if ever smoked Alcohol use: No CD- Drugs: No Place of Residence: Care Home Review of Systems is unable to be obtained Physical Examination - Vital Signs Temperature: 98 F Blood Pressure: 171/97 Pulse: 87 Respirations: 16 Pulse Ox (%): 96 - Physical Exam General: Alert, In no apparent distress, Demented HEENT: Atraumatic, Normocephalic Neck: Supple, 2+ carotid pulse no bruit, JVD not distended Respiratory: Clear to auscultation bilaterally, Normal air movement Cardiovascular: Regular rate/rhythm, Normal S1 S2 Gastrointestinal: Normal bowel sounds, Soft and benign, Non-distended Musculoskeletal: No clubbing, No swelling, No contractures Integumentary: No rashes, No breakdown, No significant lesion, No tenderness/ swelling Neurological: Normal tone, Sensation intact, Cranial nerves 3-12 intact, Abnormal speech, Abnormal strength, Dementia Lymphatics: No axilla or inguinal lymphadenopathy - Studies Laboratory Data (last 24 hrs) 10/02/19 20:00: PT 11.1, INR 0.94, APTT 32.4 10/02/19 20:00: Sodium 145, Potassium 4.0, BUN 24 H, Creatinine 1.07, Glucose 109 H, Total Bilirubin 0.3, AST 16, ALT 18, Alkaline Phosphatase 64, Lipase 182 10/02/19 19:00: WBC 7.2, Hgb 10.0 L, Hct 30.4 L, Plt Count 428 H Assessment & Plan - Problems (Diagnosis) (1) Toxic encephalopathy Current Visit: Yes Status: Acute (2) UTI (urinary tract infection) Current Visit: Yes Status: Acute (3) Alzheimer's dementia Current Visit: Yes Status: Acute (4) Bipolar disorder Current Visit: Yes Status: Acute - Plan Plan: 1. IV hydration 2. IV antibiotics 3. Neurochecks Q 4 4. Fall precautions 5. Monitor labs and electrolytes 6. Pain control 7. GI DVT prophylaxis Discharge Plan: Home Plan to discharge in: Greater than 2 days - Advance Directives Does patient have a Living Will: No Does patient have a Durable POA for Healthcare: No - Code Status/Comfort Care Code Status Assessed: Yes Code Status: Full Code Critical Care: No Time Spent Managing PTS Care (In Minutes): 40
[2019-10-03] MEDS ORDERED: POTASSIUM 25 MEQ EFFERV TAB PO ONE (09:00)
[2019-10-03] MEDS ORDERED: ENOXAPARIN 40 MG/0.4 ML SQ SCH (09:00)
[2019-10-03] MEDS: CEFTRIAXONE/SWI 1gm 1 GM/10 ML SYR IV SCH ×2 (09:55→20:52)
[2019-10-03] MEDS ORDERED: TRAMADOL HCL 50 MG TAB PO PRN (12:32)
--- NOTE | 2019-10-03 12:32 | P.PN ---
Subjective Date of Service: 10/03/19 Chief Complaint: Urinary tract infection with toxic encephalopathy Patient seen to be calm, cooperative and communicating meaningfully. She has no complain. No issues overnight. She has been afebrile. Physical Examination - Vital Signs Temperature: 98 F Blood Pressure: 171/97 Pulse: 87 Respirations: 16 Pulse Ox (%): 96 - Physical Exam General: Other (Frail appearing, awake) HEENT: Mucous membr. moist/pink Neck: Supple, JVD not distended Respiratory: Clear to auscultation bilaterally, Normal air movement Cardiovascular: No edema, Regular rate/rhythm, Normal S1 S2 Gastrointestinal: Normal bowel sounds, Soft and benign, Non-distended, No tenderness Musculoskeletal: No swelling Integumentary: No rashes Neurological: Normal speech - Studies Laboratory Data (last 24 hrs) 10/02/19 20:00: PT 11.1, INR 0.94, APTT 32.4 10/02/19 20:00: Sodium 145, Potassium 4.0, BUN 24 H, Creatinine 1.07, Glucose 109 H, Total Bilirubin 0.3, AST 16, ALT 18, Alkaline Phosphatase 64, Lipase 182 10/02/19 19:00: WBC 7.2, Hgb 10.0 L, Hct 30.4 L, Plt Count 428 H Assessment And Plan - Current Problems (Diagnosis) (1) UTI (urinary tract infection) Current Visit: Yes Status: Acute (2) Toxic encephalopathy Current Visit: Yes Status: Acute (3) Alzheimer's dementia Current Visit: Yes Status: Acute (4) Bipolar disorder Current Visit: Yes Status: Acute - Plan Continue IV Rocephin. Follow urine culture. Supportive measures with IV hydration. Seroquel at bedtime p.r.n. for agitation. Haldol IV p.r.n. for agitation. Periodic reorientation
[2019-10-03] MEDS ORDERED: HALOPERIDOL LACT 5 MG/ML INJ IV PRN (12:35)
[2019-10-03] MEDS: LIPASE/PROTEASE/AMYLASE CAP PO SCH ×2 (15:25→20:50)
[2019-10-03 15:28] LABS: Urine Appearance CLOUDY; Urine Bilirubin NEGATIVE (NEG); Urine Blood TRACE (NEG); Urine Color YELLOW; Urine Glucose NEGATIVE (NEG); Urine Protein NEGATIVE (NEG); Urine Urobilinogen 0.2 mg/dL (0.2-1.0)
[2019-10-03 15:59] LABS: Urine Microscopic Reflex ORDER UMIC
[2019-10-03 16:13] LABS: Urine Bacteria 20-50 /HPF (<20); Urine Culture Reflex Order REFLEXED; Urine RBC <5 /HPF (NONE SEEN)
--- NOTE | 2019-10-03 17:18 | EKG ---
Test Date: 2019-10-02 Test Time: 19:26:23 Knowledge Management Consultant: VENKATA MEASUREMENT RESULTS: Intervals: Rate: 92 DC: 134 QRSD: 86 QT: 368 QTc: 455 [place]: P: 52 DC: 134 QRS: 22 T: 56 INTERPRETIVE STATEMENTS: Sinus rhythm with occasional premature ventricular complexes Otherwise normal ECG No previous ECG available for comparison Electronically Signed On 10-03-19 17:18:09 SHEET METAL TECHNICIAN by Abdoulaye Ruiz
[2019-10-03] MEDS ORDERED: HYDRALAZINE HCL 20 MG/ML VIAL IV PRN (17:44)
[2019-10-03] MEDS: ATORVASTATIN 10 MG TAB PO SCH (20:50)
[2019-10-03] MEDS: MELATONIN 3 MG TABLET PO SCH (20:50)
[2019-10-03] MEDS: QUETIAPINE 25 MG TAB PO SCH (20:50)
[2019-10-03] MEDS: DOCUSATE NA 100 MG CAP PO SCH (20:51)
[2019-10-03] MEDS: CARBOXYMETHYLCELLULOS OP SCH (20:52)
[2019-10-03] MEDS: [UNRECOGNIZED DRUG - OTHER] OP SCH (20:52)
[2019-10-03] MEDS: GLYCERIN OP SCH (20:52)
[2019-10-03] MEDS ORDERED: HOME MED 1 EA UNK (Docusate Sodium [Docusate Sodium] 100 MG) PO SCH (21:00)
[2019-10-03] MEDS ORDERED: AMLODIPINE 2.5 MG TAB PO SCH (21:00)
[2019-10-03] MEDS: ACETAMINOPHEN 500 MG TAB PO PRN (23:17)
[2019-10-04] MEDS: NA CHLORIDE 0.9% 1,000 ML IV SCH (02:56)
[2019-10-04 06:34] LABS: Basophils % 0.8 % (0-1.3); Hematocrit 24.8 % (36.0-45.0); MPV 7.7 fL (7.6-11.3); RBC Red Blood Cell Count 2.78 M/uL (3.86-4.86)
[2019-10-04] MEDS: DULOXETINE 30 MG CAP PO SCH (08:28)
[2019-10-04] MEDS: DOCUSATE NA 100 MG CAP PO SCH ×2 (08:29→21:18)
[2019-10-04] MEDS: ASPIRIN EC 81 MG TAB PO SCH (08:29)
[2019-10-04] MEDS: LIPASE/PROTEASE/AMYLASE CAP PO SCH ×3 (08:29→21:19)
[2019-10-04] MEDS: CLOPIDOGREL 75 MG TABLET PO SCH (08:29)
[2019-10-04] MEDS: [UNRECOGNIZED DRUG - OTHER] OP SCH ×2 (08:30→21:00)
[2019-10-04] MEDS: GLYCERIN OP SCH ×2 (08:30→21:00)
[2019-10-04] MEDS: CEFTRIAXONE/SWI 1gm 1 GM/10 ML SYR IV SCH (08:30)
[2019-10-04] MEDS: CARBOXYMETHYLCELLULOS OP SCH ×2 (08:30→21:00)
[2019-10-04] MEDS ORDERED: HOME MED 1 EA UNK (Simvastatin [Simvastatin] 20 MG) PO SCH (09:00)
[2019-10-04] MEDS ORDERED: DULOXETINE HCL 120 MG PO SCH (09:00)
[2019-10-04] MEDS: ACETAMINOPHEN 500 MG TAB PO PRN (11:43)
--- NOTE | 2019-10-04 14:25 | P.PN ---
Subjective Date of Service: 10/04/19 Primary Care Provider: [facility] Chief Complaint: Urinary tract infection with toxic encephalopathy Subjective: Improving, Doing well, Demented Physical Examination - Vital Signs Temperature: 98.3 F Blood Pressure: 186/89 Pulse: 87 Respirations: 16 Pulse Ox (%): 96 - Physical Exam General: Alert, Cooperative, Demented HEENT: Atraumatic Neck: Supple Respiratory: Clear to auscultation bilaterally, Normal air movement Cardiovascular: Normal pulses, Regular rate/rhythm Gastrointestinal: Normal bowel sounds, Soft and benign, Non-distended Neurological: Dementia - Studies Microbiology Data (last 24 hrs): 10/02/19 20:13 Clean Catch Urine [place] Count - Final >100,000 CFU/ML. 10/02/19 20:13 Clean Catch Urine - Final Escherichia Coli Medications List Reviewed: Yes Assessment & Plan Discharge Plan: Shelter Plan to discharge in: 24 Hours Physician Review Additional Text: Impression: Toxic encephalopathy related to UTI, urine culture positive for E coli Alzheimer's dementia Hypertension Hyperlipidemia Bipolar disorder Plan: Toxic encephalopathy related to UTI, urine culture positive for E coli: Will change antibiotic to Augmentin. Pharmacy to monitor and adjust appropriately. 911 emergency services dispatcher consulted to transfer patient back to the [facility] likely tomorrow. Alzheimer's dementia: Patient less agitated today. Continue with medication. Hypertension: Continue medication. Hyperlipidemia: Continue with medication Bipolar disorder: Continue medication. Time Spent Managing Pts Care (In Minutes): 55
[2019-10-04] MEDS ORDERED: AMLODIPINE 5 MG TAB PO SCH (21:00)
[2019-10-04] MEDS: QUETIAPINE 25 MG TAB PO SCH (21:00)
[2019-10-04] MEDS: AMOX/K CLAV 500 MG TAB PO SCH (21:19)
[2019-10-04] MEDS: MELATONIN 3 MG TABLET PO SCH (21:19)
[2019-10-04] MEDS: ATORVASTATIN 10 MG TAB PO SCH (21:19)
[2019-10-04 21:59] VITALS: O2SAT 94
[2019-10-05] MEDS: ASPIRIN EC 81 MG TAB PO SCH (08:45)
[2019-10-05] MEDS: CLOPIDOGREL 75 MG TABLET PO SCH (08:45)
[2019-10-05] MEDS: DULOXETINE 30 MG CAP PO SCH (08:45)
[2019-10-05] MEDS: AMOX/K CLAV 500 MG TAB PO SCH (08:45)
[2019-10-05] MEDS: LIPASE/PROTEASE/AMYLASE CAP PO SCH (08:46)
[2019-10-05] MEDS: GLYCERIN OP SCH (08:47)
[2019-10-05] MEDS: CARBOXYMETHYLCELLULOS OP SCH (08:47)
[2019-10-05] MEDS: [UNRECOGNIZED DRUG - OTHER] OP SCH (08:47)
[2019-10-05] MEDS: DOCUSATE NA 100 MG CAP PO SCH (09:01)
[2019-10-05] MEDS ORDERED: LIPASE/PROTEASE/AMYLASE CAP PO SCH (12:00)
--- NOTE | 2019-10-05 12:45 | P.DS ---
Admission Date: 10/02/19 Discharge Date: 10/05/19 Primary Care Provider: [facility] Disposition: TRANSFER TO [facility] Discharge Condition: GOOD Reason for Admission: Urinary tract infection with toxic encephalopathy Consultations: none Procedures: CT Head: FINDINGS: No intracranial hemorrhage, mass, edema or shift of mid-line structures. No acute cortical based infarction. No cortical edema or sulcal effacement. No abnormal extra-axial fluid collections. Atrophy and chronic ischemic changes are present. Ventricles are in proportion to the amount of volume loss. 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 Mastoid air cells and visualized portions of the paranasal sinuses are clear. No acute bony findings. IMPRESSION: No hemorrhage, mass or acute intracranial finding. 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 Medical Problem List: Toxic encephalopathy related to UTI, urine culture positive for E coli Alzheimer's dementia Hypertension Hyperlipidemia Bipolar disorder History of CVA Anemia of chronic disease Chronic pancreatitis Chronic pain Brief History of Present Illness: 84-year-old female with history of dementia presented to the emergency room with altered mental status. Patient found to have UTI. She was admitted for further evaluation and treatment. Hospital Course: Patient presented with toxic encephalopathy related to UTI. Patient found to have urine culture positive for E coli. Patient responded well to IV antibiotic therapy. At discharge she is back to her baseline. Patient will continue with Augmentin 500 mg 1 pill twice daily for 4 more days. Recommend to recheck urine culture after that time to monitor resolution. Recommend UTI prevention and education at the [facility]. Patient with Alzheimer's dementia/bipolar disorder. Patient back to baseline. Patient had been started on Abilify recently at the [facility]. Family reports this has caused increase confusion. This was discontinued in her stay. At discharge will recommend to discontinue Abilify. Patient will continue with Cymbalta on 120 mg daily and Seroquel 25 mg at bedtime. Patient will also be provided a limited supply of Haldol 0.5 mg twice daily as needed for agitation. Further adjustment can be done by her PCP. Patient with hypertension, hyperlipidemia, and history of CVA. This has remained stable. Patient will continue with her medications-Norvasc 2.5 mg at bedtime, aspirin 81 mg daily, Plavix 75 mg daily, and Zocor 20 mg daily. Patient with stable chronic pancreatitis. At discharge she will continue with her medication Creon 3 times a day. Patient with chronic pain. Patient may continue with tramadol 50 mg 3 times a day as needed for pain. Patient with anemia of chronic disease. This has remained stable. Patient may continue with multi vitamin daily. Recommend to recheck CBC in 1-2 months to monitor stability.. Vital Signs/Physical Exam: Temp Pulse Resp BP Pulse Ox 97.6 F 86 18 166/81 H 96 10/05/19 08:00 10/05/19 08:00 10/05/19 08:00 10/05/19 08:00 10/05/19 08:00 General: Alert, In no apparent distress, Cooperative, Demented HEENT: Atraumatic Neck: Supple Respiratory: Clear to auscultation bilaterally, Normal air movement Cardiovascular: Normal pulses, Regular rate/rhythm Gastrointestinal: Normal bowel sounds, Soft and benign, Non-distended Neurological: Dementia Laboratory Data at Discharge: WBC 4.0 K/uL (4.3-10.9) L D 10/04/19 06:20 Hgb 8.5 g/dL (12.0-15.0) L 10/04/19 06:20 Hct 24.8 % (36.0-45.0) L 10/04/19 06:20 Plt Count 318 K/uL (152-406) 10/04/19 06:20 PT 11.1 SECONDS (9.5-12.5) 10/02/19 20:00 INR 0.94 10/02/19 20:00 APTT 32.4 SECONDS (24.3-36.9) 10/02/19 20:00 Sodium 145 mmol/L (136-145) 10/04/19 06:20 Potassium 4.0 mmol/L (3.5-5.1) 10/04/19 06:20 BUN 14 mg/dL (7-18) 10/04/19 06:20 Creatinine 0.74 mg/dL (0.55-1.3) 10/04/19 06:20 Glucose 91 mg/dL (74-106) 10/04/19 06:20 Phosphorus 2.8 mg/dL (2.5-4.9) 10/03/19 04:45 Magnesium 2.0 mg/dL (1.8-2.4) 10/03/19 04:45 Total Bilirubin 0.4 mg/dL (0.2-1.0) 10/03/19 04:45 AST 18 U/L (15-37) 10/03/19 04:45 ALT 15 U/L (12-78) 10/03/19 04:45 Alkaline Phosphatase 62 U/L (45-117) 10/03/19 04:45 Lipase 182 U/L (73-393) 10/02/19 20:00 Home Medications: Acetaminophen [Tylenol] 650 mg PO Q6H PRN 10/03/19 Amlodipine [Norvasc*] 2.5 mg PO BEDTIME 10/03/19 Aspirin [Aspir-Low] 81 mg PO DAILY 10/03/19 Carboxymethylcellulos/Glycerin [Lubricant 0.5-0.9% Eye Drops] 1 drop OP BID 05/15 Clopidogrel Bisulfate [Plavix*] 75 mg PO DAILY 10/03/19 Docusate Sodium 100 mg PO BID 10/03/19 Duloxetine HCl 120 mg PO DAILY 10/03/19 Lipase/Protease/Amylase [Manoj Dr 12,000 Units Capsule] 1 each PO TID 10/03/19 Melatonin 6 mg PO BEDTIME 10/03/19 Simvastatin 20 mg PO DAILY 10/03/19 Tramadol HCl [Ultram] 50 mg PO BEDTIME 10/03/19 Tramadol HCl [Ultram] 50 mg PO Q6H PRN 10/03/19 Amox/Clavulanate [Augmentin 500-125 mg Tab*] 500 mg PO BID #8 tab 10/05/19 Multivitamin [Multiple Vitamins] 1 each PO DAILY #90 tablet 10/05/19 Quetiapine [Seroquel*] 25 mg PO BEDTIME #30 tab 10/05/19 haloperidoL [Haldol] 0.5 mg PO BID PRN #10 tablet 10/05/19 New Medications: Amox/Clavulanate [Augmentin 500-125 mg Tab*] 500 mg PO BID #8 tab haloperidoL [Haldol] 0.5 mg PO BID PRN #10 tablet PRN Reason: Agitation Multivitamin [Multiple Vitamins] 1 each PO DAILY #90 tablet Quetiapine [Seroquel*] 25 mg PO BEDTIME #30 tab Patient Discharge Instructions: 1. Return to [facility]. 2. Patient presented with toxic encephalopathy related to UTI. Patient found to have urine culture positive for E coli. Patient responded well to IV antibiotic therapy. At discharge she is back to her baseline. Patient will continue with Augmentin 500 mg 1 pill twice daily for 4 more days. Recommend to recheck urine culture after that time to monitor resolution. Recommend UTI prevention and education at the [facility]. 3. Patient with Alzheimer's dementia/ bipolar disorder. Patient back to baseline. Patient had been started on Abilify recently at the [facility]. Family reports this has caused increase confusion. This was discontinued in her stay. At discharge will recommend to discontinue Abilify. Patient will continue with Cymbalta on 120 mg daily and Seroquel 25 mg at bedtime. Patient will also be provided a limited supply of Haldol 0.5 mg twice daily as needed for agitation. Further adjustment can be done by her PCP. 4. Patient with hypertension, hyperlipidemia, and history of CVA. This has remained stable. Patient will continue with her medications- Norvasc 2.5 mg at bedtime, aspirin 81 mg daily, Plavix 75 mg daily, and Zocor 20 mg daily. 5. Patient with stable chronic pancreatitis. At discharge she will continue with her medication Creon 3 times a day. 6. Patient with chronic pain. Patient may continue with tramadol 50 mg 3 times a day as needed for pain. 7. Patient with anemia of chronic disease. This has remained stable. Patient may continue with multi vitamin daily. Recommend to recheck CBC in 1-2 months to monitor stability.. Diet: AHA Activity: Fall precautions Time spent managing pt's care (in minutes): 55
[2019-10-05 14:22] VITALS: BP 140/80
[2019-10-05 14:39] VITALS: TEMP 97.5
== END 2019-10-05 14:19 | DRG 689 ==
LOC: ER 19:10 → ERHOLD 23:00 → 2ND 10-03 01:46
PROVIDERS: ADMIT Hospitalist; ATTEND Family Medicine
DX: N39.0 Urinary tract infection, site not specified (principal); G92 Toxic encephalopathy; K86.1 Other chronic pancreatitis; B96.20 Unspecified Escherichia coli [E. coli] as the cause of diseases classified elsewhere; G30.9 Alzheimer's disease, unspecified; F02.80 Dementia in other diseases classified elsewhere, unspecified severity, without behavioral disturbance, psychotic disturbance, mood disturbance, and anxiety; F31.9 Bipolar disorder, unspecified; I10 Essential (primary) hypertension; E78.5 Hyperlipidemia, unspecified; D63.8 Anemia in other chronic diseases classified elsewhere; G89.29 Other chronic pain
CPT/HCPCS: 36415; 51702; 70450; 71045; 80048; 80053; 80076; 81003; 81015; 82550; 82553; 82947; 83605; 83690; 83735; 84100; 84145; 84484; 85025; 85610; 85730; 87040; 87077; 87086; 87088; 87186; 93005; 96361; 96365; 96375; 99291; 99292; J0360; J0696; J1630; J1650; J3360; J7030

== ENCOUNTER 2024-03-27 09:37 | Emergency (ER) | payer OTHER ==
--- OUTSIDE RECORDS SUMMARY | 2024-03-27 09:40 | XMS REPORT | Continuity of Care Document ---
Author Name Unknown Address [address] [place] [address] [facility] Address [address] [place] [address] Care Team Providers Care Manager Agency Name Role Phone SENA SHEN Attending Clinician Unavailable TOSHA CRUZ Attending Clinician Unavailable Tosha Cruz Attending Clinician Unavailable Dima Hill Attending Clinician Unavailable IHDE_G Attending Clinician Unavailable DAY DO Attending Clinician Unavail able JOE HANNA Attending Clinician Unavailable BRIAN RICE Attending Clinician Unavail able EARNEST SIM Attending Clinician Unavailable BRITNI HUERTAS Attending Clinician Unava ilTIA Hill Attending Clinician Unavailable Tito Mendenhall Attending Clinician Unavailab DANIEL Moreau Attending Clinician Unavailable Praful Avalos Attending Clinician Unavailable ROQUE PITTS Attending Clinician Unavailable STACEY HOWARD Attending Clinician UnavailKENTRELL vasquez BA Attending Clinician Unavailable OMERO SPICER Attending Clinician Unavailable PARMINDER ORTIZ Attending Clinician UnavailJE Pacheco Attending Clinician Unavail able TRICIA BLANKENSHIP Attending Clinician Un available MILLER TAYLOR Attending Clinician Unavailable WEI FLAHERTY Attending Clinician Unavailab HARLEY Flores Attending Clinician Unavailable CARIE MORALES Attending Clinician Unavailable TIKI BURK Attending Clinician Unavailab JULIANN Doran Attending Clinician UnaMatt Marquez Admitting Clinician Unavailab le IHDE_G Admitting Clinician Unavailable DAY DO Admitting Clinician Unavail able JOE HANNA Admitting Clinician Unavailable EARNEST SIM Admitting Clinician Unavailable Praful Avalos Admitting Clinician Unavailable OMERO SPICER Admitting Clinician Unavailable JE JEFFERSON Admitting Clinician BRITNI Alcazar Admitting Clinician Jammie illenin Payers Payer Name Policy Type Policy Number Effective Date Expirati on Date Source [facility] (MEDICARE REPLACEMENT/ADVANT[place] GE - PPO) [id number] [facility] (MEDICAID HMO) [id number] 2019 00:00:00 Encounters Start Date/Time End Date/Time Encounter Type Admission Type Attending Clinicians Care Facility Care Department Encounter ID Source 2023-03-22 08:13:19 Inpatient [facility] 2023-03-20 15:55:59 Inpatient [facility] 24 [facility] 2023-03-19 13:01:47 Inpatient [facility] [id number] [facility] 2023-03-13 10:31:42 Inpatient [facility] [id number] [facility] 2022-10-03 09:28:05 Inpatient [facility] 07 [facility] 2022-08-22 08:32:09 Inpatient [facility] 26 [facility] 2023-05-17 07:28:00 2023-05-17 07:28:00 Outpatient SENA LAZO [facility] [id number] [facility] 2023-03-20 07:42:00 2023-03-20 07:42:00 Outpatient SENA LAZO [facility] [id number] [facility] 2023-03-13 08:30:00 2023-03-13 17:00:00 Outpatient NURSING FACILITY^^ 14^NURSING FACILITY^^ 14^NURSING FACILITY^^ 14 [facility] [id number] [facility] 2023-03-13 09:07:00 2023-03-13 09:07:00 Outpatient SENA LAZO [facility] [id number] [facility] 2023-03-02 14:15:00 2023-03-02 14:15:00 Outpatient TOSHA ALVARADO [facility] [id number] [facility] 2023-02-25 09:00:00 2023-02-25 09:00:00 Outpatient TOSHA ALVARADO [facility] [id number] [facility] 2021-11-21 00:00:00 2023-02-22 15:33:58 [id number] 2021-11-21 00:00:00 2023-02-22 01:00:00 Outpatient Tosha [facility] [id number] [facility] 2022-11-05 10:11:00 2022-11-05 10:11:00 Outpatient TOSHA ALVARADO [facility] [id number] [facility] 2022-06-12 12:03:00 2022-06-12 12:03:00 Outpatient Dima Carreon [facility] [id number] [facility] 2022-05-18 13:49:00 2022-05-18 13:49:00 Outpatient AB NerDima issa [facility] [id number] [facility] 2022-03-29 07:14:00 2022-03-29 07:14:00 Outpatient AB NerDima issa [facility] [id number] [facility] 2022-02-24 11:40:00 2022-02-24 11:40:00 Outpatient Dima Carreon [facility] [id number] [facility] 2022-01-26 10:54:00 2022-01-26 10:54:00 Outpatient EL NerDima issa [facility] [id number] [facility] 2022-01-11 11:57:00 2022-01-11 11:57:00 Outpatient EL NerDima issa [facility] [id number] [facility] 2021-11-21 03:32:00 2021-11-21 03:32:00 Outpatient IHDE_G MMG G [id number] [facility] 2021-11-18 11:25:00 2021-11-20 16:00:00 Inpatient DAY PEREIRA [facility] [id number] [facility] 2021-08-16 19:18:00 2021-08-16 19:18:00 Outpatient EL Neret, Dima [facility] [id number] [facility] 2021-08-03 09:41:00 2021-08-03 09:41:00 Outpatient EL Neret, Dima [facility] [id number] [facility] 2021-06-01 11:15:00 2021-06-01 11:15:00 Outpatient EL Neret, Dima [facility] [id number] [facility] 2021-05-02 09:19:00 2021-05-02 09:19:00 Outpatient EL Neret, Dima [facility] [id number] [facility] 2020-10-22 11:12:00 2020-10-22 11:12:00 Outpatient AB NeretDima [facility] [id number] [facility] 2020-10-14 09:51:00 2020-10-14 09:51:00 Outpatient AB NeretDima [facility] [id number] [facility] 2020-10-03 08:18:00 2020-10-03 08:18:00 Outpatient EL NeretDima [facility] [id number] [facility] 2020-09-09 08:10:00 2020-09-09 08:10:00 Outpatient EL NeretDima [facility] [id number] [facility] 2020-08-16 08:17:00 2020-08-16 08:17:00 Outpatient EL NeretDima [facility] [id number] [facility] 2020-07-07 09:53:00 2020-07-07 09:53:00 Outpatient Dima Carreon [facility] [id number] [facility] 2020-05-25 11:11:00 2020-05-25 11:11:00 Outpatient Dima Carreon [facility] [id number] [facility] 2020-05-02 13:44:00 2020-05-02 13:44:00 Outpatient Dima Carreon [facility] [id number] [facility] 2020-04-14 12:36:00 2020-04-15 17:30:00 Inpatient ER SAM HANNAMIE [facility] [id number] [facility] 2020-03-11 08:53:00 2020-03-11 08:53:00 Outpatient BRIAN DE JESUS [facility] [id number] [facility] 2020-01-08 19:19:00 2020-01-08 19:19:00 Outpatient Dima Carreon [facility] [id number] [facility] 2019-12-15 09:19:00 2019-12-15 09:19:00 Outpatient Dima Carreon [facility] [id number] [facility] jignesh [facility] 2019-11-05 07:56:00 2019-11-05 07:56:00 Outpatient Dima Carreon [facility] [id number] [facility] 2019-10-26 07:37:00 2019-10-26 07:37:00 Outpatient Dima Carreon [facility] [id number] [facility] 2019-10-05 21:32:00 2019-10-14 15:30:00 Inpatient ER EARNEST SIM [facility] [id number] [facility] 2019-07-21 18:37:00 2019-08-06 17:41:00 Inpatient ER EARNEST SIM [facility] [id number] [facility] 2017-05-01 15:58:00 2017-05-01 15:58:00 Outpatient BRITNI WYATT [facility] [id number] [facility] 2016-09-25 14:06:00 2016-09-25 14:06:00 Outpatient TIA SOSA [facility] [id number] [facility] 2016-04-25 10:38:00 2016-04-25 10:38:00 Outpatient Tito Baugh [facility] [id number] [facility] 2015-08-19 14:16:00 2015-08-19 14:16:00 Outpatient BRITNI WYATT [facility] [id number] [facility] 2014-07-10 09:39:00 2014-07-10 14:10:00 Emergency ER DANIEL DENSON [facility] [id number] [facility] 2014-07-07 09:56:00 2014-07-07 09:56:00 Outpatient BRITNI WYATT [facility] [id number] [facility] 2013-11-18 09:55:00 2013-11-18 09:55:00 Outpatient BRITNI WYATT [facility] [id number] [facility] 2013-06-09 08:24:00 2013-06-19 14:38:00 Inpatient ER DANIEL DENSON [facility] [id number] [facility] 2013-06-03 14:52:00 2013-06-06 13:28:00 Inpatient ER Praful Avalos [facility] [id number] [facility] 2013-04-14 12:43:00 2013-04-14 12:43:00 Outpatient ROQUE OLIVO [facility] [id number] [facility] 2013-04-08 07:01:00 2013-04-09 11:47:00 Inpatient ER JOE HANNA [facility] [id number] [facility] 2012-12-15 15:49:00 2012-12-15 20:42:00 Emergency ER STACEY HOWARD [facility] [id number] [facility] 2010-09-03 19:56:00 2010-09-03 22:49:00 Emergency ER KENTRELL TOLEDO [facility] [id number] [facility] 2010-08-17 17:29:00 2010-08-17 17:29:00 Outpatient UR BRITNI HUERTAS [facility] [id number] [facility] 2010-04-25 09:11:00 2010-04-25 09:11:00 Outpatient ROQUE OLIVO [facility] [id number] [facility] 2008-07-30 15:14:00 2008-08-09 13:42:00 Inpatient ER OMERO SPICER [facility] [id number] [facility] 2008-07-28 17:47:00 2008-07-28 23:22:00 Emergency ER PARMINDER ORTIZ [facility] [id number] [facility] 2008-05-11 20:18:00 2008-05-15 15:00:00 Inpatient ER JE JEFFERSON [facility] [id number] [facility] 2008-03-23 22:58:00 2008-03-24 01:50:00 Emergency ER TRICIA FRANK [facility] [id number] [facility] 2007-09-20 01:06:00 2007-09-20 08:40:00 Emergency ER TRICIA FRANK [facility] [id number] [facility] 2006-07-30 17:36:00 2006-07-30 21:15:00 Emergency ER KENTRELL TOLEDO [facility] [id number] [facility] 2006-06-15 16:29:00 2006-06-16 07:45:00 Emergency ER PARMINDER ORTIZ [facility] [id number] [facility] 2004-10-24 14:03:00 2004-10-24 19:40:00 Emergency ER MILLER TAYLOR [facility] [id number] [facility] 2004-10-17 22:39:00 2004-10-18 03:15:00 Emergency ER KRYSTINA POPLAMBERTO [facility] [id number] [facility] 2004-10-16 00:30:00 2004-10-16 15:45:00 Inpatient ER FERNBRITNI CHAVEZ [facility] [id number] [facility] 2004-08-18 08:41:00 2004-08-18 08:41:00 Outpatient HARLEY AKINS [facility] [id number] [facility] 2004-08-11 09:49:00 2004-08-11 09:49:00 Outpatient HARLEY AKINS [facility] [id number] [facility] 2004-08-04 10:32:00 2004-08-04 10:32:00 Outpatient HARLEY AKINS [facility] [id number] [facility] 2004-07-13 07:10:00 2004-07-13 09:30:00 Emergency ER CARIE MORALES [facility] [id number] [facility] 2004-05-12 09:52:00 2004-05-12 09:52:00 Outpatient HARLEY AKINS [facility] [id number] [facility] 2004-03-27 18:27:00 2004-03-27 22:10:00 Emergency ER TIKI BURK [facility] [id number] [facility] 2003-08-21 22:50:00 2003-08-22 00:42:00 Emergency ER CARIE MORALES [facility] [id number] [facility] 2003-01-14 07:34:00 2003-01-14 07:34:00 Outpatient JULIANN CARRANZA [facility] [id number] [facility]
[2024-03-27] MEDS ORDERED: LIDOCAINE 1% 20 ML MDV ONE (10:30)
--- NOTE | 2024-03-27 10:48 | RAD REPORT ---
EXAM DESCRIPTION: CT - Head C Spine Mpr Wo Con - 03/27/2024 10:24 am CLINICAL HISTORY: Head and neck injury status post fall. Head and neck pain COMPARISON: 2019 TECHNIQUE: Computed axial tomography of the head and cervical spine was obtained. Sagittal and coronal reconstruction was performed. All CT scans are performed using dose optimization technique as appropriate and may include automated exposure control or mA/KV adjustment according to patient size. FINDINGS: An intracranial bleed is not seen. The ventricles are normal in caliber. Old left cerebral infarction. . An extra-axial fluid collection is not noted. Fluid within the visualized sinuses and mastoids is not seen A cervical fracture is not visualized. No dislocation is noted. Mild chronic anterior subluxation C3 on C4 and C4-C5. Mild chronic anterior subluxation C7 on T1. The patient is markedly rotated which limits evaluation somewhat. IMPRESSION: No acute intracranial abnormality is seen. A cervical fracture is not visualized. If the patient continues to have symptoms to suggest intracranial /spinal cord pathology then MRI wou ld be recommended
--- NOTE | 2024-03-27 10:48 | RAD REPORT ---
EXAM DESCRIPTION: CT - Facial Bones W/ Mpr - 03/27/2024 10:25 am CLINICAL HISTORY: Facial injury with pain COMPARISON: None TECHNIQUE: Computed axial tomography of the face was obtained. Coronal and sagittal reconstruction w as performed. All CT scans are performed using dose optimization technique as appropriate and may include automated exposure control or mA/KV adjustment according to patient size. FINDINGS: Nondisplaced nasal bone fracture A TMJ dislocation is not noted. The globes are intact. Fluid within the sinuses is not seen. IMPRESSION: Nondisplaced nasal bone fracture
--- NOTE | 2024-03-27 11:05 | EDPHYS ---
Physician Documentation [facility] Name: Dayanna Borrero Age: 89 yrs Sex: Female : 1935 Arrival Date: 03/27/2024 Time: 09:37 Bed 17 Private MD: ED Physician Bob Villalobos HPI: 03/27 10:57 This 89 yrs old Female presents to ER via EMS with complaints of Fall Injury. kim 10:57 Details of fall: The patient fell from seated position, out of a chair. Onset: The kim symptoms/episode began/occurred just prior to arrival. Associated injuries: The patient sustained injury to the head, laceration, .5 cm(s). Severity of symptoms: At their worst the symptoms were mild, moderate, in the emergency department the symptoms are unchanged. The patient has not experienced similar symptoms in the past. Historical: - Allergies: 09:45 fluoxetine (bulk); kc6 09:45 Iodine; kc6 09:45 Morphine; kc6 09:45 quinidine; kc6 09:45 Zolpidem; kc6 09:45 Tositumomab Analogues; kc6 - PMHx: 09:45 Bipolar disorder; Dementia; heart desease; High Cholesterol; Pancreatitis; Congenital kc6 heart disease; - PSHx: 09:45 Unable to Obtain; kc6 - Immunization history:: Adult Immunizations up to date. - Infectious Disease History:: Denies. - Social history:: Smoking status: Patient denies any tobacco usage or history of. ROS: 10:58 Constitutional: Negative for fever, chills, and weight loss, Eyes: Negative for injury, kim pain, redness, and discharge, Neck: Negative for injury, pain, and swelling, Cardiovascular: Negative for chest pain, palpitations, and edema, Respiratory: Negative for shortness of breath, cough, wheezing, and pleuritic chest pain, Abdomen/GI: Negative for abdominal pain, nausea, vomiting, diarrhea, and constipation, : Negative for injury, bleeding, discharge, and swelling, MS/Extremity: Negative for injury and deformity, Skin: Negative for injury, rash, and discoloration, Neuro: Negative for headache, weakness, numbness, tingling, and seizure, Psych: Negative for depression, anxiety, suicide ideation, homicidal ideation, and hallucinations, Allergy/Immunology: Negative for hives, rash, and allergies, Endocrine: Negative for neck swelling, polydipsia, polyuria, polyphagia, and marked weight changes, Hematologic/Lymphatic: Negative for swollen nodes, abnormal bleeding, and unusual bruising, 10:58 Back: Positive for decreased range of motion, pain with movement, usual, Exam: 10:58 Constitutional: This is a well developed, well nourished patient who is awake, alert, kim and in no acute distress. Head/Face: Normocephalic, atraumatic. Eyes: Pupils equal round and reactive to light, extra-ocular motions intact. Lids and lashes normal. Conjunctiva and sclera are non-icteric and not injected. Cornea within normal limits. Periorbital areas with no swelling, redness, or edema. Neck: Trachea midline, no thyromegaly or masses palpated, and no cervical lymphadenopathy. Supple, full range of motion without nuchal rigidity, or vertebral point tenderness. No Meningismus. Chest/axilla: Normal chest wall appearance and motion. Nontender with no deformity. No lesions are appreciated. Cardiovascular: Regular rate and rhythm with a normal S1 and S2. No gallops, murmurs, or rubs. Normal PMI, no JVD. No pulse deficits. Respiratory: Lungs have equal breath sounds bilaterally, clear to auscultation and percussion. No rales, rhonchi or wheezes noted. No increased work of breathing, no retractions or nasal flaring. Abdomen/GI: Soft, non-tender, with normal bowel sounds. No distension or tympany. No guarding or rebound. No evidence of tenderness throughout. Back: No spinal tenderness. No costovertebral tenderness. Full range of motion. Female : Normal external genitalia. Skin: Warm, dry with normal turgor. Normal color with no rashes, no lesions, and no evidence of cellulitis. MS/ Extremity: Pulses equal, no cyanosis. Neurovascular intact. Full, normal range of motion. Neuro: Awake and alert, GCS 15, oriented to person, place, time, and situation. Cranial nerves II-XII grossly intact. Motor strength 5/5 in all extremities. Sensory grossly intact. Cerebellar exam normal. Normal gait. Psych: Awake, alert, with orientation to person, place and time. Behavior, mood, and affect are within normal limits. 10:58 ENT: Nose: Nasal septum: is midline, Nasal mucosa: Dried blood. Turbinates: are normal, abrasion, that is deep, clotted blood, in both nares, laceration, that is deep, approximately .5 cm(s), Vital Signs: 09:44 BP 111 / 51; Pulse 55; Resp 18 S; Pulse Ox 97% on R/A; kc6 11:50 BP 111 / 62; Pulse 61; Resp 18; Temp 97.6; Pulse Ox 95% ; db [place] Coma Score: 10:58 Eye Response: spontaneous(4). Motor Response: obeys commands(6). Verbal Response: kim oriented(5). Total: 15. Laceration: 10:58 Wound Repair of .5cm ( 0.2in ) subcutaneous laceration to nose. Irregularly shaped.. kim Distal neuro/vascular/tendon intact. Anesthesia: Local anesthetic administered with 3 mls of 1% lidocaine. Wound prep: Simple cleansing by me. Skin closed with 3 6-0 Prolene using interrupted sutures and sterile technique. Dressed with Neosporin, non-adherent dressing. Patient tolerated well. MDM: 09:40 Patient medically screened. kim 10:58 Differential diagnosis: Contusion of Hematoma on Laceration of Intracranial bleed- [facility] Concussion nasal fracture, trauma, sinusitis, epistaxis r/t trauma. Differential diagnosis: abrasion, closed head injury, contusion, fracture, laceration, multiple trauma, sprain, strain. Data reviewed: vital signs, nurses notes. Consideration of Admission/Observation Escalation of care including admission/observation considered. I considered the following discharge prescriptions or medication management in the emergency department Medications were administered in the Emergency Department. See MAR. Independent interpretation of the following test(s) in the Emergency Department CT Scan: My interpretation is ct head , c spine, face. Test considered but Not performed: Labs: no labs. Historians other than the Patient: Daughter/Son: daughter , well informed and wonderful to her mom. Care significantly affected by the following chronic conditions: Hypertension, dementia, cad, pancreatitis. 03/27 10:10 Order name: CT Head C Spine; Complete Time: 10:56 kim 03/27 10:10 Order name: CT Facial Bones W/O Con; Complete Time: 10:56 [facility] Administered Medications: 11:57 Drug: Mupirocin Topical Ointment 2 % 1 application Topical once Route: Topical; Site: db affected area; Disposition Summary: 03/27/24 11:05 Discharge Ordered Notes: Location: Home kim Problem: new kim Symptoms: have improved kim Condition: Stable kim Diagnosis - History of falling kim - Repeated falls kim - Fracture of nasal bones kim - Laceration without foreign body of other part of head - nasal kim - Dementia in other diseases classified elsewhere without behavioral disturbance kim Followup: kim - With: Private Physician - When: 2 - 3 days - Reason: Recheck today's complaints, Continuance of care, Re-evaluation by your physician Discharge Instructions: - Discharge Summary Sheet kim - Dementia kim - Fall Prevention in the Home, Adult kim - Facial Laceration kim - Nasal Fracture kim - Facial Laceration, [id number] kim - Fall Prevention in the Home, Adult, [id number] kim - Nasal Fracture, [id number] kim - Dementia, [id number] kim Forms: - Medication Reconciliation Form kim - Antibiotic Education kim - Prescription Opioid Use kim - Patient Portal Instructions [facility] - Leadership Thank You Letter [facility] Prescriptions: - Centany 2 % Topical ointment - apply 1 application TOPICAL route 3 times per day; 15 gram tube; Refills: 0, kim Product Selection Permitted - Cephalexin 250 mg/5 mL Oral Suspension for Reconstitution - take 10 milliliter ORAL route every 12 hours for 7 days; 140 milliliter; [facility] Refills: 0, Product Selection Permitted Signatures: Dispatcher [employer] Bob Kramer MD MD cha Campbell, Kaitlyn, RN RN kc6 Rosa Isela Oh RN RN db
--- NOTE | 2024-03-27 11:05 | ER ---
Nurse's Notes [facility] Name: Dayanna Borrero Age: 89 yrs Sex: Female : 1935 Arrival Date: 03/27/2024 Time: 09:37 Bed 17 Private MD: Diagnosis: History of falling;Repeated falls;Fracture of nasal bones;Laceration without foreign body of other part of head-nasal ;Dementia in other diseases classified elsewhere without behavioral disturbance Presentation: 03/27 09:44 Chief complaint: EMS states: PT HAD AN UNWITNESSED FALL IN HER ROOM AT [facility]. PT kc6 REPORTS NOSE PAIN. Coronavirus screen: At this time, the client does not indicate any symptoms associated with coronavirus-19. Ebola Screen: No symptoms or risks identified at this time. Initial Sepsis Screen: Does the patient meet any 2 criteria? Altered Mental Status. No. Patient's initial sepsis screen is negative. Does the patient have a suspected source of infection? No. Patient's initial sepsis screen is negative. Risk Assessment: Do you want to hurt yourself or someone else? Patient reports no desire to harm self or others. Onset of symptoms was March 27, 2024. 09:44 Method Of Arrival: EMS: [facility] kc6 09:44 Acuity: LORAINE 3 kc6 Historical: - Allergies: 09:45 fluoxetine (bulk); kc6 09:45 Iodine; kc6 09:45 Morphine; kc6 09:45 quinidine; kc6 09:45 Zolpidem; kc6 09:45 Tositumomab Analogues; kc6 - PMHx: 09:45 Bipolar disorder; Dementia; heart desease; High Cholesterol; Pancreatitis; Congenital kc6 heart disease; - PSHx: 09:45 Unable to Obtain; kc6 - Immunization history:: Adult Immunizations up to date. - Infectious Disease History:: Denies. - Social history:: Smoking status: Patient denies any tobacco usage or history of. Screenin:47 [facility] ED Fall Risk Assessment (Adult) History of falling in the last 3 months, kc6 including since admission Yes- single mechanical fall (1 pt) Confusion or Disorientation Yes (5 pts) Intoxicated or Sedated No (0 pts) Impaired Gait Yes (1 pt) Mobility Assist Device Used Yes (1 pt) Altered Elimination No (0 pt) Score/Fall Risk Level 3 or more points = High Risk. Abuse screen: Denies threats or abuse. Denies injuries from another. Nutritional screening: No deficits noted. Tuberculosis screening: No symptoms or risk factors identified. Assessment: 10:09 General: Appears in no apparent distress. uncomfortable, well groomed, well developed, kc6 Behavior is cooperative, anxious. Pain: Complains of pain in nose. Neuro: Level of Consciousness is awake, alert, obeys commands, Oriented to person, Appropriate for age. Cardiovascular: Capillary refill < 3 seconds. Respiratory: Airway is patent Trachea midline Respiratory effort is even, unlabored, Respiratory pattern is regular, symmetrical. GI: No signs and/or symptoms were reported involving the gastrointestinal system. : No signs and/or symptoms were reported regarding the genitourinary system. EENT: No signs and/or symptoms were reported regarding the EENT system. Derm: Skin is healthy with good turgor, Skin is pink, warm \T\ dry. Musculoskeletal: No signs and/or symptoms reported regarding the musculoskeletal system. Circulation, motion, and sensation intact. Capillary refill < 3 seconds, Range of motion: intact in all extremities. Injury Description: Laceration sustained to nose is clean, not bleeding, was sustained 30-60 minutes ago. a small amount of bleeding noted at this time. 11:09 Reassessment: Patient appears in no apparent distress at this time. No changes from kc6 previously documented assessment. Patient and/or family updated on plan of care and expected duration. Pain level reassessed. 11:51 Reassessment: REPORT GIVEN TO LONDON MAGALLON AT [facility]. WILL CALL BACK WITH tod MUIR. 12:04 Reassessment: Patient appears in no apparent distress at this time. Patient and/or db family updated on plan of care and expected duration. Pain level reassessed. 12:09 Reassessment: Patient appears in no apparent distress at this time. No changes from kc6 previously documented assessment. Patient and/or family updated on plan of care and expected duration. Pain level reassessed. Vital Signs: 09:44 BP 111 / 51; Pulse 55; Resp 18 S; Pulse Ox 97% on R/A; kc6 11:50 BP 111 / 62; Pulse 61; Resp 18; Temp 97.6; Pulse Ox 95% ; db [place] Coma Score: 10:58 Eye Response: spontaneous(4). Motor Response: obeys commands(6). Verbal Response: kim oriented(5). Total: 15. ED Course: 09:39 Patient arrived in ED. tamara 09:40 Bob Villalobos MD is Attending Physician. kim 09:44 Cherise Talbert, RN is Primary Nurse. kc6 09:45 Triage completed. kc6 09:45 Arm band placed on. kc6 09:47 Patient has correct armband on for positive identification. Bed in low position. Call kc6 light in reach. Side rails up X2. Adult w/ patient. Client placed on continuous cardiac and pulse oximetry monitoring. NIBP monitoring applied. Warm blanket given. Pillow given. 10:23 CT Head C Spine In Process Unspecified. EDMS 10:23 CT Facial Bones W/O Con In Process Unspecified. EDMS 12:04 Provided Education on: HALF-WAY. db 12:04 No provider procedures requiring assistance completed. Patient did not have IV access db during this emergency room visit. Administered Medications: 11:57 Drug: Mupirocin Topical Ointment 2 % 1 application Topical once Route: Topical; Site: db affected area; Medication: 12:04 VIS not applicable for this client. db Outcome: 11:05 Discharge ordered by . kim 12:04 Discharged to [facility]. Report called to NAUN MUIR 30 MIN db 12:04 Condition: stable 12:04 Discharge instructions given to [facility], Instructed on discharge instructions, follow up and referral plans. Prescriptions given X 2, 12:24 Patient left the ED. kc6 Signatures: Dispatcher [employer] EDAR Bob Villalobos MD MD cha Botello, Elizabeth eb Campbell, Kaitlyn, RN RN kc Rosa Isela Oh RN RN db
[2024-03-27] MEDS ORDERED: MUPIROCIN 2% OINT 22GM TUBE TOP ONE (11:55)
[2024-03-27 12:37] VITALS: BP 111/62; TEMP 97.6; O2SAT 95
== END 2024-03-27 12:24 | disposition home or self-care (01) ==
LOC: ER 09:37
PROC: 0HQ1XZZ Repair Face Skin, External Approach (ICD-10-PCS; principal; 2024-03-27)
DX: S02.2XXA Fracture of nasal bones, initial encounter for closed fracture (principal); S01.81XA Laceration without foreign body of other part of head, initial encounter; F03.90 Unspecified dementia, unspecified severity, without behavioral disturbance, psychotic disturbance, mood disturbance, and anxiety; R29.6 Repeated falls; Z91.81 History of falling
CPT/HCPCS: 70450; 72125; 70486; 76377; 99284; 12011; J2001